=== PATIENT | male | born 1950 | race African-American/Black ===

== ENCOUNTER 2016-05-17 10:31 | Emergency (ER) | payer OTHER ==
[~2016-05-17] VITALS: Ht 177.8 cm; Wt 138.6 kg
[~2016-05-17 10:31] MED LIST: BACLOFEN10 MG PO; BENEMID500 MG PO; CLONIDINE HCL0.3 MG PO; COLCHICINE,COL0.6 MG PO; COUMADIN5 MG PO; COZAAR100 MG PO; KEFLEX500 MG PO; LASIX40 MG PO; LOPRESSOR100 M1 PO; LOSARTAN POTAS100 MG NG; LUMIGAN 0.50 DROP/2. BOTH EYES; LUMIGAN2.5 ML BOTH EYES; PERCOCET 5/31 TABLET PO; PLENDIL10 MG; SPIRONOLACTONE25 MG PO; TOPROL XL100 MG PO; WARFARIN SODIUM5 MG PO
[2016-05-17 11:05] LABS: HEMATOCRIT 40.7 % (38.0-50.0); MCH 28.5 PG (29.0-34.0); MCHC 31.7 G/DL (30.0-36.0); RBC DIS.WIDTH-CV 13.1 % (11.8-14.6); RBC DIS.WIDTH-SD 42.9 % (39-53); RED BLOOD COUNT 4.52 M/uL (4.00-5.50); WHITE BLOOD COUNT 11.5 K/uL (4.1-10.2)
[2016-05-17 11:17] LABS: CHLORIDE 107 mEq/L (99-109); POTASSIUM 4.3 mEq/L (3.7-5.4); SODIUM 140 mEq/L (136-147)
[2016-05-17 11:19] LABS: GLUCOSE 98 mg/dL (70-99)
[2016-05-17 11:20] LABS: ANION GAP 7 MEQ/L (2-14)
[2016-05-17 11:22] LABS: ALKALINE PHOSPHATASE 64 IU/L (3-129)
[2016-05-17 11:23] LABS: GFR ESTIMATE (CALCULATED) > 59 mL/min/
[2016-05-17 11:24] LABS: UREA NITROGEN (BUN) 19 mg/dL (9-23)
[2016-05-17 11:44] LABS: MEAN PLAT.VOLUME 10.8 uM^3 (9.0-12.4); PLAT.SUFFICIENCY ADEQUATE; PLATELET COUNT 229 K/uL (156-360)
[2016-05-17 12:33] LABS: INFLUENZA A VIRAL ANTIGEN NEGATIVE; INFLUENZA B VIRAL ANTIGEN NEGATIVE
[2016-05-17 13:11] LABS: INTER. NORMALIZED RATIO 3.4; PROTHROMBIN TIME 35.9 (9.2-11.2)
[2016-05-17] MEDS ORDERED: ZITHROMAX500 MG PO (13:13)
[2016-05-17] MEDS ORDERED: TESSALON200 MG PO (13:13)
[2016-05-17] MEDS ORDERED: ROBITUSSIN AC,T10 ML PO (13:13)
[2016-05-17 13:32] LABS: ADD MIUA? YES; BILIRUBIN NEGATIVE; BLOOD LARGE; GLUCOSE (STRIP) NEGATIVE; KETONES NEGATIVE; LEUKOCYTES TRACE; NITRITE POSITIVE; PROTEIN (STRIP) 100; UROBILINOGEN 0.2 MG/DL (0.2-1.0)
[2016-05-17 13:35] LABS: COLOR DK YELLOW ((YELLOW))
[2016-05-17 13:49] LABS: BACTERIA 2+ /HPF; EPITHELIAL CELLS NONE SEEN /HPF; MUCUS NONE SEEN /LPF; RED BLOOD CELLS TNTC /HPF (0-5); WHITE BLOOD CELLS 0-5 /HPF (0-5)
[2016-05-17] MEDS ORDERED: KEFLEX500 MG PO (13:50)
[2016-05-17 15:20] VITALS: BP 104/66
[2016-05-19] MEDS ORDERED: WARFARIN SODIU2.5 MG PO
== END 2016-05-17 15:21 | disposition home or self-care (01) ==
LOC: EME 10:31
PROVIDERS: Emergency Medicine
DX: J06.9 Acute upper respiratory infection, unspecified (principal); I50.9 Heart failure, unspecified; N39.0 Urinary tract infection, site not specified; I89.0 Lymphedema, not elsewhere classified; I10 Essential (primary) hypertension; Z86.711 Personal history of pulmonary embolism; Z86.718 Personal history of other venous thrombosis and embolism; Z79.01 Long term (current) use of anticoagulants; F17.200 Nicotine dependence, unspecified, uncomplicated
CPT/HCPCS: 71020; 80053; 81003; 83880; 85027; 85610; 87077; 87086; 87186; 87502; 99281; 99285

== ENCOUNTER 2016-05-19 21:14 | Emergency (ER) | payer OTHER ==
[~2016-05-19] VITALS: Ht 177.8 cm; Wt 118.1 kg
[~2016-05-19 21:14] MED LIST changes: +ROBITUSSIN AC,T10 ML PO; +TESSALON200 MG PO; +WARFARIN SODIU2.5 MG PO; +ZITHROMAX500 MG PO
[2016-05-19 22:00] LABS: HEMATOCRIT 41.9 % (38.0-50.0); MCH 28.3 PG (29.0-34.0); MCHC 31.5 G/DL (30.0-36.0); MCV 89.7 FL (86-99); MEAN PLAT.VOLUME 11.1 uM^3 (9.0-12.4); PLATELET COUNT 260 K/uL (156-360); RBC DIS.WIDTH-SD 42.7 % (39-53); RED BLOOD COUNT 4.67 M/uL (4.00-5.50); WHITE BLOOD COUNT 9.2 K/uL (4.1-10.2)
[2016-05-19 22:20] LABS: CHLORIDE 104 mEq/L (99-109); POTASSIUM 4.7 mEq/L (3.7-5.4); SODIUM 138 mEq/L (136-147)
[2016-05-19 22:21] LABS: GLUCOSE 144 mg/dL (70-99)
[2016-05-19 22:23] LABS: ANION GAP 9 MEQ/L (2-14)
[2016-05-19 22:25] LABS: GFR ESTIMATE (CALCULATED) 52 mL/min/
[2016-05-19 22:31] LABS: UREA NITROGEN (BUN) 34 mg/dL (9-23)
[2016-05-19] MEDS ORDERED: WARFARIN SODIUM1 MG PO (23:58)
[2016-05-20] MEDS ORDERED: WARFARIN SODIU2.5 MG PO (00:01)
[2016-05-20] MEDS ORDERED: ZITHROMAX500 MG PO (00:03)
[2016-05-20 01:30] LABS: ADD MIUA? YES; BILIRUBIN NEGATIVE; BLOOD LARGE; COLOR YELLOW ((YELLOW)); GLUCOSE (STRIP) NEGATIVE; KETONES NEGATIVE; LEUKOCYTES MODERATE; NITRITE NEGATIVE; PROTEIN (STRIP) 100; SPECIFIC GRAVITY 1.018 (1.000-1.030); UROBILINOGEN 0.2 MG/DL (0.2-1.0)
[2016-05-20 02:00] LABS: RED BLOOD CELLS TNTC /HPF (0-5)
[2016-05-20 02:01] LABS: BACTERIA 2+ /HPF; CASTS NONE SEEN /LPF; EPITHELIAL CELLS RARE /HPF; MUCUS RARE /LPF; UCUL ADDED? YES; WHITE BLOOD CELLS 30-40 /HPF (0-5)
[2016-05-20 02:02] LABS: AMORPHOUS URATES CRYSTALS 2+; CRYSTALS PRESENT
[2016-05-20 06:06] VITALS: BP 137/93
== END 2016-05-20 06:09 | disposition short-term general hospital (02) ==
LOC: EME 21:14
PROVIDERS: Emergency Medicine; Family Medicine
DX: L03.115 Cellulitis of right lower limb (principal); L03.116 Cellulitis of left lower limb; N30.00 Acute cystitis without hematuria; S92.511A Displaced fracture of proximal phalanx of right lesser toe(s), initial encounter for closed fracture; I10 Essential (primary) hypertension; Z86.718 Personal history of other venous thrombosis and embolism; Z86.711 Personal history of pulmonary embolism; E78.5 Hyperlipidemia, unspecified; W19.XXXA Unspecified fall, initial encounter
CPT/HCPCS: 73630; 74176; 80048; 81003; 83605; 83880; 85027; 87040; 87086; 99281; 99285; J0696; J7030; J7050

== ENCOUNTER 2016-06-27 15:52 | Inpatient (IN) | payer OTHER ==
[~2016-06-27] VITALS: Ht 177.8 cm; Wt 124.8 kg
[~2016-06-27 15:52] MED LIST changes: +WARFARIN SODIUM1 MG PO
[2016-06-27 17:02] LABS: EOSINOPHIL (%) 5.4 % (0-5); EOSINOPHIL COUNT 0.4 K/uL (0-0.3); HEMATOCRIT 44.5 % (38.0-50.0); IMMATURE GRANULOCYTE (%) 0.3 % (0.0-0.7); INSTRUMENT ABS NEUTROPHIL CT 5.5 K/uL; LYMPHOCYTE COUNT 0.6 K/uL (1.0-2.8); MCH 27.4 PG (29.0-34.0); MCHC 32.8 G/DL (30.0-36.0); MCV 83.6 FL (86-99); MEAN PLAT.VOLUME 11.7 uM^3 (9.0-12.4); MONOCYTE (%) 6.5 % (3-12); MONOCYTE COUNT 0.5 K/uL (0-0.8); NEUTROPHIL (%) 78.8 % (45-76); NEUTROPHIL COUNT 5.5 K/uL (1.8-6.4); PLATELET COUNT 156 K/uL (156-360); RBC DIS.WIDTH-CV 13.3 % (11.8-14.6); RBC DIS.WIDTH-SD 40.9 % (39-53); RED BLOOD COUNT 5.32 M/uL (4.00-5.50); WHITE BLOOD COUNT 6.9 K/uL (4.1-10.2)
[2016-06-27 17:11] LABS: CHLORIDE 100 mEq/L (99-109); POTASSIUM 4.8 mEq/L (3.7-5.4); SODIUM 135 mEq/L (136-147)
[2016-06-27 17:15] LABS: TOTAL BILIRUBIN 0.5 mg/dL (0.0-1.0)
[2016-06-27 17:21] LABS: PROTHROMBIN TIME 78.8 (9.2-11.2)
[2016-06-27 17:23] LABS: TROP-I INTERPRETATION NEGATIVE; TROPONIN-I 0.02 ng/mL (0.0-0.30)
[2016-06-27 17:26] LABS: INTER. NORMALIZED RATIO 7.3
[2016-06-27 17:53] LABS: GLUCOSE 116 mg/dL (70-99)
[2016-06-27 17:54] LABS: ANION GAP 16 MEQ/L (2-14)
[2016-06-27 17:56] LABS: ALKALINE PHOSPHATASE 86 IU/L (3-129)
[2016-06-27 17:57] LABS: GFR ESTIMATE (CALCULATED) 14 mL/min/
[2016-06-27 18:00] LABS: CREATINE KINASE 576 IU/L (1-294); TOTAL CK 576 IU/L (1-294)
[2016-06-27 18:05] LABS: CK-MB 1.9 ng/mL (0.0-4.9)
[2016-06-27 18:12] LABS: UREA NITROGEN (BUN) 126 mg/dL (9-23)
[2016-06-27 20:21] LABS: COLOR BROWN ((YELLOW)); LEUKOCYTES MODERATE; NITRITE NEGATIVE; SPECIFIC GRAVITY 1.019 (1.000-1.030)
[2016-06-27 20:22] LABS: ADD MIUA? YES; BILIRUBIN MODERATE; BLOOD LARGE; GLUCOSE (STRIP) NEGATIVE; ICTOTEST NEGATIVE; KETONES NEGATIVE; PROTEIN (STRIP) 300; UROBILINOGEN 0.2 MG/DL (0.2-1.0)
[2016-06-27 20:41] LABS: BACTERIA 3+ /HPF; EPITHELIAL CELLS 1+ /HPF; MUCUS RARE /LPF; RED BLOOD CELLS TNTC /HPF (0-5); UCUL ADDED? YES; WHITE BLOOD CELLS TNTC /HPF (0-5)
[2016-06-27] MEDS ORDERED: SIMVASTATIN20 MG PO (21:53)
[2016-06-27] MEDS ORDERED: WARFARIN SODIUM5 MG PO ×2 (21:54→21:55)
[2016-06-27] MEDS ORDERED: FLOMAX0.4 MG PO (21:55)
[2016-06-27] MEDS ORDERED: PROBENECID500 MG PO (21:55)
[2016-06-27] MEDS ORDERED: ARYMO ER15 MG PO (21:56)
[2016-06-27 22:55] LABS: ADD MIUA? YES; BILIRUBIN NEGATIVE; BLOOD LARGE; COLOR YELLOW ((YELLOW)); GLUCOSE (STRIP) NEGATIVE; KETONES NEGATIVE; LEUKOCYTES LARGE; NITRITE NEGATIVE; PROTEIN (STRIP) 30; SPECIFIC GRAVITY 1.014 (1.000-1.030); UROBILINOGEN 0.2 MG/DL (0.2-1.0)
[2016-06-27 23:20] LABS: BACTERIA RARE /HPF; EPITHELIAL CELLS NONE SEEN /HPF; GRANULAR CASTS 0-5 /LPF; MUCUS TRACE /LPF; RED BLOOD CELLS TNTC /HPF (0-5); UCUL ADDED? YES; WHITE BLOOD CELLS TNTC /HPF (0-5)
[2016-06-28] VITALS (7 sets, daily range): BP systolic 107–125; BP diastolic 59–67
[2016-06-28 05:31] LABS: HEMATOCRIT 31.8 % (38.0-50.0); MCH 28.3 PG (29.0-34.0); MCHC 33.3 G/DL (30.0-36.0); MEAN PLAT.VOLUME 11.7 uM^3 (9.0-12.4); PLATELET COUNT 163 K/uL (156-360); RBC DIS.WIDTH-CV 13.5 % (11.8-14.6); RBC DIS.WIDTH-SD 42.2 % (39-53); RED BLOOD COUNT 3.74 M/uL (4.00-5.50)
[2016-06-28 06:23] LABS: PROTHROMBIN TIME 106.7 (9.2-11.2)
[2016-06-28 06:28] LABS: INTER. NORMALIZED RATIO 9.8
[2016-06-28 06:44] LABS: ANION GAP 12 MEQ/L (2-14); CHLORIDE 103 MEQ/L (99-109); GFR ESTIMATE (CALCULATED) 18 mL/min/; GLUCOSE 108 mg/dL (70-99); POTASSIUM 4.2 MEQ/L (3.7-5.4); SAMPLE HEMOLYSIS CHECK 0; SAMPLE ICTERIC CHECK 0; SAMPLE LIPEMIA CHECK 0; SODIUM 135 MEQ/L (136-147); URIC ACID 12.1 mg/dL (3.1-9.2)
[2016-06-28 06:46] LABS: UREA NITROGEN (BUN) 114 mg/dL (9-23)
[2016-06-28 17:29] LABS: IRON 34 MCG/DL (35-150)
[2016-06-29 03:26] VITALS: BP 124/64
[2016-06-29 06:33] LABS: HEMATOCRIT 33.3 % (38.0-50.0); MCH 27.4 PG (29.0-34.0); MCHC 32.7 G/DL (30.0-36.0); MCV 83.7 FL (86-99); MEAN PLAT.VOLUME 11.4 uM^3 (9.0-12.4); PLATELET COUNT 187 K/uL (156-360); RBC DIS.WIDTH-CV 13.4 % (11.8-14.6); RBC DIS.WIDTH-SD 41.6 % (39-53); RED BLOOD COUNT 3.98 M/uL (4.00-5.50)
[2016-06-29 07:15] LABS: PROTHROMBIN TIME 95.2 (9.2-11.2)
[2016-06-29 07:17] LABS: INTACT PARATHYROID HORMONE 237 pg/mL (10-69)
[2016-06-29 07:22] LABS: ANION GAP 11 MEQ/L (2-14); CHLORIDE 110 MEQ/L (99-109); GLUCOSE 119 mg/dL (70-99); INTER. NORMALIZED RATIO 8.7; MAGNESIUM 2.2 mg/dl (1.3-2.7); SAMPLE HEMOLYSIS CHECK 0; SAMPLE ICTERIC CHECK 0; SAMPLE LIPEMIA CHECK 0; SODIUM 140 MEQ/L (136-147); UREA NITROGEN (BUN) 80 mg/dL (9-23)
[2016-06-29 07:34] LABS: GFR ESTIMATE (CALCULATED) 32 mL/min/; VANCOMYCIN, TROUGH 6.4 MCG/ML (10-20)
[2016-06-29 07:55] VITALS: BP 131/60
[2016-06-29 12:15] VITALS: BP 121/55
[2016-06-29 16:30] VITALS: BP 136/67
[2016-06-29 20:15] VITALS: BP 128/73
[2016-06-30] VITALS (7 sets, daily range): BP systolic 140–165; BP diastolic 76–99
[2016-06-30 06:11] LABS: HEMATOCRIT 36.1 % (38.0-50.0); MCH 27.6 PG (29.0-34.0); MCHC 32.7 G/DL (30.0-36.0); MCV 84.5 FL (86-99); MEAN PLAT.VOLUME 10.7 uM^3 (9.0-12.4); PLATELET COUNT 220 K/uL (156-360); RBC DIS.WIDTH-CV 13.2 % (11.8-14.6); RBC DIS.WIDTH-SD 41.4 % (39-53); RED BLOOD COUNT 4.27 M/uL (4.00-5.50); WHITE BLOOD COUNT 7.8 K/uL (4.1-10.2)
[2016-06-30 06:26] LABS: INTER. NORMALIZED RATIO 4.1; PROTHROMBIN TIME 43.5 (9.2-11.2)
[2016-06-30 07:00] LABS: ANION GAP 8 MEQ/L (2-14); CHLORIDE 114 MEQ/L (99-109); GLUCOSE 124 mg/dL (70-99); MAGNESIUM 1.9 mg/dl (1.3-2.7); SAMPLE HEMOLYSIS CHECK 0; SAMPLE ICTERIC CHECK 0; SAMPLE LIPEMIA CHECK 0; SODIUM 143 MEQ/L (136-147); UREA NITROGEN (BUN) 48 mg/dL (9-23); URIC ACID 8.8 mg/dL (3.1-9.2)
[2016-06-30 07:05] LABS: GFR ESTIMATE (CALCULATED) 46 mL/min/; VANCOMYCIN, TROUGH 13.4 MCG/ML (10-20)
[2016-07-01] VITALS (8 sets, daily range): BP systolic 141–198; BP diastolic 77–109
[2016-07-01 07:56] LABS: INTER. NORMALIZED RATIO 3.9; PROTHROMBIN TIME 41.5 (9.2-11.2)
[2016-07-01 08:18] LABS: ANION GAP 9 MEQ/L (2-14); CHLORIDE 112 MEQ/L (99-109); GFR ESTIMATE (CALCULATED) > 59 mL/min/; GLUCOSE 99 mg/dL (70-99); POTASSIUM 4.1 MEQ/L (3.7-5.4); SAMPLE HEMOLYSIS CHECK 0; SAMPLE ICTERIC CHECK 0; SAMPLE LIPEMIA CHECK 0; SODIUM 147 MEQ/L (136-147); UREA NITROGEN (BUN) 28 mg/dL (9-23)
[2016-07-02] VITALS (7 sets, daily range): BP systolic 147–184; BP diastolic 61–95
[2016-07-02 07:11] LABS: HEMATOCRIT 35.7 % (38.0-50.0); MCH 27.4 PG (29.0-34.0); MCHC 31.9 G/DL (30.0-36.0); MCV 85.8 FL (86-99); MEAN PLAT.VOLUME 10.5 uM^3 (9.0-12.4); PLATELET COUNT 237 K/uL (156-360); RBC DIS.WIDTH-CV 13.2 % (11.8-14.6); RBC DIS.WIDTH-SD 41.1 % (39-53); RED BLOOD COUNT 4.16 M/uL (4.00-5.50); WHITE BLOOD COUNT 8.6 K/uL (4.1-10.2)
[2016-07-02 07:30] LABS: ANION GAP 8 MEQ/L (2-14); CHLORIDE 111 MEQ/L (99-109); GFR ESTIMATE (CALCULATED) > 59 mL/min/; GLUCOSE 96 mg/dL (70-99); SAMPLE HEMOLYSIS CHECK 0; SAMPLE ICTERIC CHECK 0; SAMPLE LIPEMIA CHECK 0; SODIUM 142 MEQ/L (136-147); UREA NITROGEN (BUN) 19 mg/dL (9-23)
[2016-07-02 07:43] LABS: INTER. NORMALIZED RATIO 5.4; PROTHROMBIN TIME 58.2 (9.2-11.2)
[2016-07-02 13:25] LABS: PROTHROMBIN TIME 65.9 (9.2-11.2)
[2016-07-02 13:27] LABS: INTER. NORMALIZED RATIO 6.1
[2016-07-03 03:41] VITALS: BP 152/70
[2016-07-03 08:06] LABS: HEMATOCRIT 34.8 % (38.0-50.0); MCH 27.6 PG (29.0-34.0); MCHC 32.5 G/DL (30.0-36.0); MCV 85.1 FL (86-99); MEAN PLAT.VOLUME 10.4 uM^3 (9.0-12.4); PLATELET COUNT 223 K/uL (156-360); RBC DIS.WIDTH-CV 13.1 % (11.8-14.6); RBC DIS.WIDTH-SD 40.2 % (39-53); RED BLOOD COUNT 4.09 M/uL (4.00-5.50); WHITE BLOOD COUNT 8.8 K/uL (4.1-10.2)
[2016-07-03 08:21] LABS: CHLORIDE 111 mEq/L (99-109); SODIUM 142 mEq/L (136-147)
[2016-07-03 08:22] LABS: GLUCOSE 89 mg/dL (70-99)
[2016-07-03 08:24] LABS: ANION GAP 9 MEQ/L (2-14)
[2016-07-03 08:26] LABS: GFR ESTIMATE (CALCULATED) > 59 mL/min/
[2016-07-03 08:27] LABS: UREA NITROGEN (BUN) 16 mg/dL (9-23)
[2016-07-03 08:29] LABS: INTER. NORMALIZED RATIO 1.6; PROTHROMBIN TIME 16.1 (9.2-11.2)
[2016-07-03] MEDS ORDERED: PRAVASTATIN SOD40 MG PO (08:35)
[2016-07-03] MEDS ORDERED: CLONIDINE HCL0.1 MG PO (08:35)
[2016-07-03] MEDS ORDERED: ROCEPHIN 2 GM VI2 GM IM (08:40)
[2016-07-03 08:45] VITALS: BP 151/99
[2016-07-03 10:10] LABS: INTER. NORMALIZED RATIO 1.4; PROTHROMBIN TIME 14.7 (9.2-11.2)
[2016-07-03] MEDS ORDERED: COUMADIN5 MG PO (10:32)
== END 2016-07-03 13:22 | DRG 872 ==
LOC: EME 15:52 → 2EAST 06-28 00:53 → 4EAST 06-28 00:53 → EDOF 06-28 00:53 → 4EAST 06-28 02:29 → 2EAST 06-30 19:20
PROVIDERS: Emergency Medicine; Hospitalist; Internal Medicine
DX: A41.9 Sepsis, unspecified organism (principal); E87.2 Acidosis; E87.1 Hypo-osmolality and hyponatremia; N10 Acute pyelonephritis; N17.9 Acute kidney failure, unspecified; N18.4 Chronic kidney disease, stage 4 (severe); N13.9 Obstructive and reflux uropathy, unspecified; L03.031 Cellulitis of right toe; I12.9 Hypertensive chronic kidney disease with stage 1 through stage 4 chronic kidney disease, or unspecified chronic kidney disease; I89.0 Lymphedema, not elsewhere classified; N28.89 Other specified disorders of kidney and ureter; Z99.3 Dependence on wheelchair; E83.51 Hypocalcemia; R26.2 Difficulty in walking, not elsewhere classified; N20.0 Calculus of kidney; E66.9 Obesity, unspecified; Z68.39 Body mass index [BMI] 39.0-39.9, adult; I95.9 Hypotension, unspecified; F17.210 Nicotine dependence, cigarettes, uncomplicated; I83.009 Varicose veins of unspecified lower extremity with ulcer of unspecified site; R33.9 Retention of urine, unspecified; M47.9 Spondylosis, unspecified; M17.9 Osteoarthritis of knee, unspecified; S05.91XS Unspecified injury of right eye and orbit, sequela; Z96.0 Presence of urogenital implants; R53.1 Weakness; E79.0 Hyperuricemia without signs of inflammatory arthritis and tophaceous disease; D50.9 Iron deficiency anemia, unspecified; I48.91 Unspecified atrial fibrillation; Z86.718 Personal history of other venous thrombosis and embolism; Z86.711 Personal history of pulmonary embolism
CPT/HCPCS: 71010; 72192; 74176; 76705; 80048; 80048 91; 80053; 80069; 80202; 81003; 82306; 82436; 82550; 82553; 83540; 83605; 83735; 83935; 83970; 84133; 84300; 84466; 84484; 84550; 85025; 85027; 85610; 87040; 87077; 87086; 87186; 89190; 93005; 93306; 94799; 97530 GP; 99281; 99285; J0696; J2270; J2405; J2543; J3370; J7030; J7050